=== PATIENT | male | born 1950 | race Caucasian/White ===

== ENCOUNTER → 2017-01-20 | Outpatient (CLI) | payer MEDICARE, BC ==
[~2017-01-20] MED LIST: ADVAIR 2501 DISK W/D PO; ALBUTEROL17 GM INH; ASPIRIN81 M2 PO; ATORVASTATIN CA40 MG PO; BUPROPION XL150 MG PO; CLOPIDOGREL75 MG PO; COREG3.125 MG PO; DECADRON PO; DIAZEPAM PO; DUONEB 2.5-0.5 M3 ML NEB; FENTANYL1 PATCH .1 TD; FINASTERIDE5 M1 PO; HYDROCODONE 5/500; HYDROCODONE 5/500 PO; KLONOPIN PO; LATUDA20 MG PO; LEVAQUIN PO; LISINOPRIL PO; LISINOPRIL20 MG PO; LORTAB 7.5-5001 TAB PO; LYRICA PO; METFORMIN PO; METOPROLOL TART25 MG PO; MUCINEX DM ER1 EAC1 PO; MULTI VITAMIN1 EACH PO; NEXIUM PO; NITROGLYGERIN0.4 MG SL; OMEPRAZOLE40 M1 PO; OXYCODONE HCL20 M1 PO; OXYCODONE15 MG PO; PERCOCET PO; PERCOCET7.5 PO; PREDNISONE PO; PREDNISONE10 MG/DOSE PO; SYMBICORT INH; TEMAZEPAM PO; ZOCOR PO; ZOLOFT100 MG PO
--- NOTE | ~2017-01-20 | MR17 ---
[facility] A Service of [facility] / [facility] RADIOLOGY TEXT RESULTS PATIENT: ABIGAIL ORONA JR LOCATION: [facility] : 46 UNIT #: [id number] AGE: [address]: KITA WOODRUFF MD (INT MED) SEX: M ORDER DR: [id number] [address] [address] [id number] MR#: [id number] Acc #: [id number] NAME: ABIGAIL ORONA : 1950 SEX: M STUDY DATE/TIME: 01/20/2017 15:30 UNIT: [facility] ROOM: STUDY DESCRIPTION: MR Brain WWo Contrast Attending Physician: Kita Woodruff M.D. Referring Physician: Kita Woodruff M.D. Ordering Physician: Kita Woodruff M.D. Primary Care Physician: Kita Woodruff M.D. MRI CENTER REPORT This report is preliminary unless electronic signature is present. EXAM MRI of the brain with and without. HISTORY Confusion. Study very limited secondary to patient motion. Patient had difficulty holding still. No known injury or surgery. Complains of increasing headaches and dizziness and confusion. Patient disoriented with hallucinations for about 4-5 months. History of hypertension and diabetes. COMMENT MRI of the brain was performed prior to and following intravenous administration of 19 mL of MultiHance using routine 1.5T wide-bore imaging technique. There is no previous. There is no evidence for a recent ischemic insult on the diffusion series. There is generalized atrophy. There is moderate white matter disease, most confluent in the periatrial white matter. There is no extraaxial fluid collection. Major arterial intracranial flow voids are grossly maintained. There is considerable right maxillary sinus disease with near-complete opacification. Partial opacification of the bilateral ethmoid air cells. No gross evidence for intracranial hemorrhage on MRI. No Chiari-I malformation. Some signal abnormality extends to the left occipital cortex on T2 and FLAIR imaging measuring about 1.9 x 1.4 cm in dimension. With contrast administration, there is a small amount of cortical enhancement and this is probably an area of relatively late subacute ischemia, possibly due to a thromboembolic insult. Please correlate for clinical risk factors. I would also recommend a followup study in about 6-8 weeks to ensure that the enhancement resolves and to exclude less likely possibility such as neoplastic disease or infectious/inflammatory disease. This is felt unlikely since there does not appear to be significant mass effect at this time and again there is no restricted diffusion. Allowing for the motion, the patchy area of [facility] A Service of [facility] RADIOLOGY TEXT RESULTS PATIENT: ABIGAIL ORONA JR LOCATION: [facility] : 46 UNIT #: [id number] AGE: [address]: KITA WOODRUFF MD ([facility]) SEX: M ORDER DR: enhancement in the left occipital cortex is about 5-6 mm in dimension. IMPRESSION 1. Significant motion limitation of the study despite repeating sequences and use of motion limiting sequences. 2. Allowing for this, there is a focus of signal abnormality in the left parietal cortex with a small amount of postcontrast enhancement. It is not associated with obvious mass effect or volume loss and there is nothing to suggest hemorrhage on this MRI. Most likely consideration is that this is an area of now relatively late subacute ischemia due to a thromboembolic insult. Please correlate further clinically. I would also recommend a followup MRI with and without contrast in 6-8 weeks to reassess and ensure that this enhancement resolves. Less likely considerations would be neoplastic disease or infectious or inflammatory disease. 3. Atrophy and probable sequelae of small vessel disease. No recent ischemic insult is appreciated on the diffusion series. 4. There is paranasal sinus disease with particular involvement of the right maxillary sinus which is nearly completely opacified. Please correlate for clinical evidence of sinusitis. STAT * RESULT Dictated by... Fouzia Stahl M.D. THIS IS AN ELECTRONICALLY VERIFIED REPORT Fouzia Stahl M.D. at 01/22/2017 7:39 AM ISHAN/andry TD: 01/21/2017 17:24 JOB #: [id number] MRI CENTER REPORT Page 1 of 1
[2017-01-20 16:20] LABS: POC - CREATININE 1.31 mg/dL (0.64-1.27)
== END | disposition home or self-care (01) ==
LOC: SMRI 14:10
PROVIDERS: Internal Medicine
DX: R44.3 Hallucinations, unspecified (principal); J34.89 Other specified disorders of nose and nasal sinuses; R93.0 Abnormal findings on diagnostic imaging of skull and head, not elsewhere classified
CPT/HCPCS: 70553; 82565; A9581